=== PATIENT | female | born 1990 | race Caucasian/White ===

== ENCOUNTER 2018-05-01 11:22 | Emergency (ER) | payer MEDICAID ==
[2018-05-01 11:23] VITALS: BMI 43.4
--- NOTE | 2018-05-01 11:50 | ED PDOC ---
Arrival/HPI - General Chief Complaint: Chest Pain Time Seen by Provider: 05/01/18 11:38 Historian: Patient - History of Present Illness Narrative History of Present Illness (Text): 27yo female, A1, presents to ER with complaints of chest pain, present intermittently for the past 2 weeks. She reports the pain as "tightness" in her chest and states it occurs at night and resolves spontaneously. Patient states she recently took a home test on 04/25 and states it was positive. She denies any vaginal bleeding or discharge, shortness of breath, weakness, abdominal pain. She offers no other medical complaints. Time/Duration: > week (2) Symptom Onset: Gradual Quality: Tightness Past Medical History - Provider Review Nursing Documentation Reviewed: Yes - Travel History Have you recently traveled outside [place] w/in the past 3 mons?: No - Past History Past History: Non-Contributing - Infectious Disease Hx of Infectious Diseases: None - Tetanus Immunization Tetanus Immunization: Unknown - Reproductive Currently : Yes (states + urine test on 04/25) - Past Medical History Past Medical History: Non-Contributing - Cardiac Hx Hypertension: Yes (in ) - Pulmonary Hx Asthma: Yes - Psychiatric Hx Depression: No Hx Substance Use: No - Anesthesia Hx Anesthesia: No - Suicidal Assessment Feels Threatened In Home Enviroment: No Family/Social History Family/Social History: CAD/CO Smoking Status: Light Smoker < 10 Cigarettes Daily Hx Alcohol Use: Yes Hx Substance Use: No Hx Substance Use Treatment: No Allergies/Home Meds Allergies/Adverse Reactions: Allergies No Known Allergies Allergy (Verified 05/01/18 12:03) Home Medications: Home Meds Medication Instructions Recorded Confirmed No Known Home Med 05/01/18 05/01/18 Review of Systems - Physician Review All systems were reviewed & negative as marked: Yes - Review of Systems Respiratory: absent: SOB Cardiovascular: Chest Pain Gastrointestinal: absent: Abdominal Pain Genitourinary Female: absent: Vaginal Bleeding, Vaginal Discharge Physical Exam Vital Signs Reviewed: Yes Vital Signs Temp Pulse Resp BP Pulse Ox 05/01/18 16:53 98.0 F 79 18 99 05/01/18 11:55 97.5 F L 72 17 119/74 100 Temperature: Afebrile Blood Pressure: Normal Pulse: Regular Respiratory Rate: Normal Appearance: Positive for: Well-Appearing, Non-Toxic, Comfortable Pain Distress: None Mental Status: Positive for: Alert and Oriented X 3 - Systems Exam Head: Present: Atraumatic, Normocephalic Pupils: Present: PERRL Extroacular Muscles: Present: EOMI Respiratory/Chest: Present: Clear to Auscultation, Good Air Exchange, Respiratory Distress, Accessory Muscle Use Cardiovascular: Present: Regular Rate and Rhythm, Normal S1, S2. No: Murmurs Abdomen: No: Tenderness, Distention, Peritoneal Signs Neurological: Present: GCS=15, CN II-XII Intact, Speech Normal Skin: Present: Warm, Dry, Normal Color. No: Rashes Psychiatric: Present: Alert, Oriented x 3, Normal Insight, Normal Concentration Medical Decision Making ED Course and Treatment: Impression: Chest pain Plan: -- Upreg -- EKG Progress: EKG: NSR 64bpm No ST/T wave changes Normal axis 05/01/18 13:37 Urine HCG is positive. Patient now complaining of abdominal pain. US Pelvis ordered. 05/01/18 16:13 US results discussed with patient. On re-evaluation, patient reports improvement in pain and is stable for discharge home. Instructed to follow up with PMD, OBGYN and to return to ER if symptoms worsen or new symptoms arise. - Lab Interpretations Lab Results: Lab Results 05/01/18 13:10: Urine HCG, Qual Positive - RAD Interpretation Narrative RAD Interpretations (Text): 05/01/18 15:49 US Transvaginal FINDINGS: UTERUS: Measures 5.2 x 6.1 x 9.0 cm. Normal in size and appearance. No fibroid or other mass lesion seen. ENDOMETRIUM: Measures 18.1 mm in diameter. Gestational sac identified 3.7 mm. This is below the threshold for calculation of reliable gestational age. There is no visible yolk sac or pole CERVIX: No cervical abnormality identified. Closed cervix measures 3.3 cm. RIGHT OVARY: Measures 2.3 x 2.5 x 4.0 cm. No solid mass. Normal flow. Multiple subcentimeter follicles. Dominant cyst 1.5 x 1.6 x 1.4 cm LEFT OVARY: Measures 1.5 x 1.7 x 3.5 cm. No solid mass. Normal flow. FREE FLUID: No significant free fluid noted. OTHER FINDINGS: None. IMPRESSION: Saclike structure in the endometrial canal likely early gestational sac without visible yolk sac or pole. Additional benign and/or incidental findings described above. Radiology Orders: 05/01/18 13:38 OB TRANSVAGINAL [US] Stat Principal Statistical Scientist: Radiologist - Medication Orders Current Medication Orders: Discontinued Medications Acetaminophen (Tylenol 325mg Tab) 975 mg PO STAT STA Stop: 05/01/18 12:13 Last Admin: 05/01/18 12:29 Dose: 975 mg MAR Pain/Vitals Document 05/01/18 12:29 [email or web address] (Rec: 05/01/18 12:29 [email or web address] [id number]) Pain Reassessment Is This A Pain ReAssessment? No Sleep Is patient sleeping during reassessment? No Presence of Pain Presence of Pain Yes Pain Scale Used Pain Scale Used Numeric Location Pain Location Body Site Chest Description Constant Intensity 5 Scale Used Numeric Pain Behavior Facial Grimacing Aggravating Factors Changing Position Alleviating Factors Medication - Scribe Statement The provider has reviewed the documentation as recorded by the Scribe (Amy Mondragon) Provider Attestation: All medical record entries made by the Scribe were at my direction and personally dictated by me. I have reviewed the chart and agree that the record accurately reflects my personal performance of the history, physical exam, medical decision making, and the department course for this patient. I have also personally directed, reviewed, and agree with the discharge instructions and disposition. Disposition/Present on Arrival - Present on Arrival Any Indicators Present on Arrival: No History of DVT/PE: No History of Uncontrolled Diabetes: No Urinary Catheter: No History Surgical Site Infection Following: None - Disposition Have Diagnosis and Disposition been Completed?: Yes Diagnosis: Chest pain, Abdominal pain during in first trimester Disposition: HOME/ ROUTINE Disposition Time: 16:14 Condition: GOOD Discharge Instructions (ExitCare): Medications and , Chest Pain (ED) Additional Instructions: LIZETTE ECKERT, thank you for letting us take care of you today. Your provider was Maggie Mcelroy MD and you were treated for /CHEST PAINS. The emergency medical care you received today was directed at your acute symptoms. If you were prescribed any medication, please fill it and take as directed. It may take several days for your symptoms to resolve. Return to the Emergency Department if your symptoms worsen, do not improve, or if you have any other problems. Please contact your doctor or call one of the physicians/clinics you have been referred to that are listed on the Patient Visit Information form that is included in your discharge packet. Bring any paperwork you were given at discharge with you along with any medications you are taking to your follow up visit. Our treatment cannot replace ongoing medical care by a primary care provider outside of the emergency department. Please also follow up with your ob /meat curer. Thank you for allowing the [facility] team to be part of your care today. If you had an X-Ray or CT scan: A Radiologist will review the ED reading if any change in treatment is needed we will contact you. If you had a blood, urine, or wound culture: It will take several days for the results, if any change in treatment is needed we will contact you. If you had an STI test: It will take 48 hours for the results. Please call after 1 week if you have not heard back. Referrals: Lindsey Fernandes MD [Primary Care Provider] - Follow up with primary Forms: [employer] (Congolese)
[2018-05-01 12:04] VITALS: BP 119/74
--- NOTE | 2018-05-01 15:51 | US ---
HISTORY: with abdominal pain LMP 04/02/2018 COMPARISON: None available. TECHNIQUE: Transvaginal only. Real -time technique with 2D, duplex and color Doppler FINDINGS: UTERUS: Measures 5.2 x 6.1 x 9.0 cm. Normal in size and appearance. No fibroid or other mass lesion seen. ENDOMETRIUM: Measures 18.1 mm in diameter. Gestational sac identified 3.7 mm. This is below the threshold for calculation of reliable gestational age. There is no visible yolk sac or pole CERVIX: No cervical abnormality identified. Closed cervix measures 3.3 cm. RIGHT OVARY: Measures 2.3 x 2.5 x 4.0 cm. No solid mass. Normal flow. Multiple subcentimeter follicles. Dominant cyst 1.5 x 1.6 x 1.4 cm LEFT OVARY: Measures 1.5 x 1.7 x 3.5 cm. No solid mass. Normal flow. FREE FLUID: No significant free fluid noted. OTHER FINDINGS: None. IMPRESSION: Saclike structure in the endometrial canal likely early gestational sac without visible yolk sac or pole. Additional benign and/or incidental findings described above.
[2018-05-01 16:53] VITALS: PULSE 79; RESP 18; TEMP 98; O2SAT 99
--- NOTE | 2018-05-01 21:20 | CARD ---
APPROVED REPORT EKG Measurement Heart [id number] IA 150P-12 [id number] <Conclusion> Normal sinus rhythm Normal ECG
== END 2018-05-01 16:53 | disposition home or self-care (01) ==
LOC: ED 11:22
DX: O26.891 Other specified pregnancy related conditions, first trimester (principal); R07.9 Chest pain, unspecified; R10.9 Unspecified abdominal pain; Z3A.00 Weeks of gestation of pregnancy not specified

== ENCOUNTER 2018-08-02 08:19 | Emergency (ER) | payer MEDICAID ==
[2018-08-02 08:19] VITALS: BMI 43.4
[2018-08-02 08:25] VITALS: RESP 18
--- NOTE | 2018-08-02 08:36 | ED PDOC ---
Arrival/HPI - General Chief Complaint: GI Problem Time Seen by Provider: 08/02/18 08:31 Historian: Patient - History of Present Illness Narrative History of Present Illness (Text): 08/02/18 08:33 28 year old female smoker, with no significant past medical history, who presents to the emergency department complaining of diarrhea x 1.5 months. Patient notes associated abdominal pain and bloating. Patient notes she had an in may of 2018, and has experienced diarrhea 5-9 times a day since the following month. Patient denies any fevers, chills, chest pain, shortness of breath, nausea, vomiting, back pain, neck pain, urinary symptoms, headache, dizziness, or any other complaint. Time/Duration: > month Symptom Onset: Gradual Symptom Course: Unchanged Activities at Onset: Light Context: Home Past Medical History - Provider Review Nursing Documentation Reviewed: Yes - Past History Past History: Non-Contributing - Infectious Disease Hx of Infectious Diseases: None - Tetanus Immunization Tetanus Immunization: Unknown - Reproductive Menopause: No - Past Medical History Past Medical History: Non-Contributing - Cardiac Hx Hypertension: Yes (in ) - Pulmonary Hx Asthma: Yes - Psychiatric Hx Depression: No Hx Substance Use: No - Surgical History Other/Comment: 06/12/18 - Anesthesia Hx Anesthesia: No - Suicidal Assessment Feels Threatened In Home Enviroment: No Family/Social History - Physician Review Nursing Documentation Reviewed: Yes Family/Social History: Unknown Family HX Smoking Status: Never Smoked Hx Alcohol Use: Yes Hx Substance Use: No Hx Substance Use Treatment: No Allergies/Home Meds Allergies/Adverse Reactions: Allergies No Known Allergies Allergy (Verified 05/01/18 12:03) Review of Systems - Physician Review All systems were reviewed & negative as marked: Yes - Review of Systems Constitutional: Normal Eyes: Normal ENT: Normal Respiratory: Normal. absent: SOB, Cough Cardiovascular: Normal. absent: Chest Pain Gastrointestinal: Abdominal Pain, Diarrhea. absent: Nausea, Vomiting Genitourinary Female: Normal. absent: Dysuria, Frequency Musculoskeletal: Normal. absent: Back Pain, Neck Pain Skin: Normal. absent: Rash Neurological: Normal. absent: Headache, Dizziness Endocrine: Normal Hemo/Lymphatic: Normal Psychiatric: Normal Physical Exam Vital Signs Reviewed: Yes Vital Signs Temp Pulse Resp BP Pulse Ox 08/02/18 10:15 73 18 128/64 100 08/02/18 08:25 98.4 F 79 18 131/61 100 Temperature: Afebrile Blood Pressure: Normal Pulse: Regular Respiratory Rate: Normal Appearance: Positive for: Well-Appearing, Non-Toxic, Comfortable Pain Distress: None Mental Status: Positive for: Alert and Oriented X 3 - Systems Exam Head: Present: Atraumatic, Normocephalic Pupils: Present: PERRL Extroacular Muscles: Present: EOMI Conjunctiva: Present: Normal Mouth: Present: Moist Mucous Membranes Neck: Present: Normal Range of Motion Respiratory/Chest: Present: Clear to Auscultation, Good Air Exchange. No: Respiratory Distress, Accessory Muscle Use Cardiovascular: Present: Regular Rate and Rhythm, Normal S1, S2. No: Murmurs Abdomen: No: Tenderness, Distention, Peritoneal Signs Back: Present: Normal Inspection Upper Extremity: Present: Normal Inspection. No: Cyanosis, Edema Lower Extremity: Present: Normal Inspection. No: Edema Neurological: Present: GCS=15, CN II-XII Intact, Speech Normal Skin: Present: Warm, Dry, Normal Color. No: Rashes Psychiatric: Present: Alert, Oriented x 3, Normal Insight, Normal Concentration Medical Decision Making ED Course and Treatment: 08/02/18 08:37 Impression: 28 year old female presents to the emergency department complaining of diarrhea x 1.5 months. Plan: -- VBG -- CT abd/pelvis -- Labs -- Blood Culture -- Stool Culture -- Labs -- UA -- US Gallbladder -- Reassess and disposition Progress Notes: 08/02/18 10:43 US Gallbladder reviewed, shows: IMPRESSION: Negative study - Lab Interpretations Lab Results: 08/02/18 08:50 08/02/18 08:50 Lab Results 08/02/18 08:50: Beta HCG, Quant < 2.39 08/02/18 08:50: Sodium 143, Chloride 110 H, Potassium 4.0, Carbon Dioxide 24, Anion Gap 13, BUN 12, Creatinine 0.5 L, Est GFR ( Amer) > 60, Est GFR ( Non-Af Amer) > 60, Random Glucose 89, Calcium 9.2, Phosphorus 3.8, Magnesium 2.0 , Total Bilirubin 0.5, AST 45 H, ALT 65 H, Alkaline Phosphatase 71, Total Protein 7.5, Albumin 4.1, Globulin 3.4, Albumin/Globulin Ratio 1.2, Amylase 49, Lipase 59 08/02/18 08:50: pO2 40, VBG pH 7.30 L, VBG pCO2 54.0, VBG HCO3 26.6, VBG Total CO2 28.3 H, VBG O2 Sat (Calc) 76.6 H, VBG Base Excess -0.7 L, VBG Potassium 3.7 , Sodium 142.0, Chloride 110.0 H, Glucose 83, Lactate 0.6 L, FiO2 21.0, Venous Blood Potassium 3.7 08/02/18 08:50: Urine Color Yellow, Urine Appearance Clear, Urine pH 6.0, Ur Specific Hurley >= 1.030, Urine Protein Trace H, Urine Glucose (UA) Negative, Urine Ketones Negative, Urine Blood Trace-intact H, Urine Nitrate Negative, Urine Bilirubin Negative, Urine Urobilinogen 0.2, Ur Leukocyte Esterase Negative , Urine RBC 0 - 2, Urine WBC 0 - 2, Ur Epithelial Cells 10 - 12, Urine Bacteria Neg 08/02/18 08:50: PT 12.9 H, INR 1.12 08/02/18 08:50: WBC 12.0 H, RBC 4.34, Hgb 12.7, Hct 38.7, MCV 89.2, MCH 29.3, MCHC 32.8, RDW 14.3, Plt Count 375, MPV 9.8, Gran % 72.6 H, Lymph % (Auto) 17.8 L, [place] % (Auto) 5.6, Eos % (Auto) 3.8, Baso % (Auto) 0.2, Gran # 8.67 H, Lymph # (Auto) 2.1, [place] # (Auto) 0.7 H, Eos # (Auto) 0.5, Baso # (Auto) 0.02 - RAD Interpretation Radiology Orders: 08/02/18 08:34 ABD PELVIS PO & IV CONTRAST [CT] Stat GALL BLADDER [US] Stat - Medication Orders Current Medication Orders: Discontinued Medications Diphenoxylate HCl/Atropine (Lomotil 0.025-2.5 Mg Tablet) 2 tab PO STAT STA Stop: 08/02/18 12:48 - Scribe Statement The provider has reviewed the documentation as recorded by the Scribe Brittany Samuel All medical record entries made by the Scribe were at my direction and personally dictated by me. I have reviewed the chart and agree that the record accurately reflects my personal performance of the history, physical exam, medical decision making, and the department course for this patient. I have also personally directed, reviewed, and agree with the discharge instructions and disposition. Disposition/Present on Arrival - Present on Arrival Any Indicators Present on Arrival: No History of DVT/PE: No History of Uncontrolled Diabetes: No Urinary Catheter: No History of Decub. Ulcer: No History Surgical Site Infection Following: None - Disposition Have Diagnosis and Disposition been Completed?: Yes Diagnosis: Diarrhea Disposition: HOME/ ROUTINE Disposition Time: 12:53 Patient Plan: Discharge Patient Problems: Current Active Problems Problem Status Onset Diarrhea Acute Condition: GOOD Discharge Instructions (ExitCare): Diarrhea in Adolescents and Adults, Diarrhea and Traveler's Diarrhea, Adult (DC) Additional Instructions: Cheli- All of your test results are normal, but we did see a small right sided ovarian cyst. Use the immodium to slow the diarrhea down and make sure you follow up with the coffee break attendant, Dr LEE. Return to us if any problems. Best- Dr. Jon Loza Referrals: Antoine Lee MD [Medical Doctor] - Follow up with primary Forms: [employer] (Tanzanian)
[2018-08-02 09:14] LABS: URINE BILIRUBIN NEGATIVE (NEGATIVE); URINE BLOOD TRACE-INTACT (NEGATIVE); URINE GLUCOSE (UA) NEGATIVE (NEGATIVE); URINE LEUKOCYTE ESTERASE NEGATIVE Leu/uL (NEGATIVE); URINE PROTEIN TRACE mg/dL (<30 mg/dL); URINE UROBILINOGEN 0.2 E.U./dL (<1 E.U./dL)
[2018-08-02 09:17] LABS: VENOUS BLOOD GAS BASE EXCESS -0.7 mmol/L (0.0-2.0); VENOUS BLOOD GAS PO2 40 mm/Hg (30-55)
[2018-08-02 09:21] LABS: INR 1.12; PROTHROMBIN TIME 12.9 SECONDS (9.4-12.5)
[2018-08-02 09:22] LABS: URINE APPEARANCE CLEAR (CLEAR); URINE COLOR YELLOW (YELLOW)
[2018-08-02 09:24] LABS: ALB/GLOB RATIO 1.2 (1.1-1.8); ALBUMIN 4.1 g/dL (3.0-4.8); ALT/SGPT 65 U/L (7-56); AMYLASE 49 U/L (35-125); AST/SGOT 45 U/L (14-36); BLOOD UREA NITROGEN 12 mg/dL (7-21); CALCIUM 9.2 mg/dL (8.4-10.5); GFR NON-AFRICAN AMERICAN > 60; LIPASE 59 U/L (23-300)
[2018-08-02 09:26] LABS: BASO # 0.02 K/mm3 (0.0-2.0); BASO % 0.2 % (0.0-3.0); EOS # 0.5 (0.0-0.7); EOS % 3.8 % (1.5-5.0); GRAN # 8.67 (1.4-6.5); GRAN % 72.6 % (50.0-68.0); HEMOGLOBIN 12.7 g/dL (12.0-16.0); LYMPH # 2.1 (1.2-3.4); LYMPH % 17.8 % (22.0-35.0); MEAN CELL VOLUME 89.2 fl (80.0-105.0); MEAN CORPUSCULAR HEMOGLOBIN 29.3 pg (25.0-35.0); MEAN CORPUSCULAR HGB CONC 32.8 g/dl (31.0-37.0); MEAN PLATELET VOLUME 9.8 fl (7.0-11.0); MONO # 0.7 (0.1-0.6); MONO % 5.6 % (1.0-6.0); RBC 4.34 10^6/uL (3.5-6.1); RED CELL DISTRIBUTION WIDTH 14.3 % (11.5-14.5)
[2018-08-02 09:44] LABS: URINE BACTERIA NEG (NEG); URINE RBC 0 - 2 /hpf (0-2); URINE WBC 0 - 2 /hpf (0-6)
[2018-08-02] MEDS ORDERED: Iohexol 240 (50 ml) ONE (09:44)
--- NOTE | 2018-08-02 10:25 | US ---
Date of service: 08/02/2018 HISTORY: Abdominal Pain and Bloating COMPARISON: None. TECHNIQUE: Sonographic evaluation of the right upper quadrant of the abdomen. FINDINGS: LIVER: Measures 14.7 x 11.6 cm in length. Normal echogenicity of the liver parenchyma. No mass. No intrahepatic bile duct dilatation. GALLBLADDER: Unremarkable. No gallstones. COMMON BILE DUCT: Measures 3 mm. No stones. No dilatation. PANCREAS: Unremarkable as visualized. No mass. No ductal dilatation. RIGHT KIDNEY: Measures 11.69 x 4.52 x 5.58 cm in length. Normal echogenicity. No calculus, mass, or hydronephrosis. AORTA: No aneurysmal dilatation. IVC: Unremarkable. OTHER FINDINGS: None . IMPRESSION: Negative study
[2018-08-02] MEDS ORDERED: Iohexol 350 MG/100 ML VIAL ONE (11:54)
--- NOTE | 2018-08-02 12:39 | CT ---
Date of service: 08/02/2018 PROCEDURE: CT Abdomen and Pelvis with contrast HISTORY: Abdominal Pain and Diarrhea COMPARISON: None. TECHNIQUE: Contrast dose: 100 cc of Omni 350 Radiation dose: Total exam DLP = 1161 mGy-cm. This CT exam was performed using one or more of the following dose reduction techniques: Automated exposure control, adjustment of the mA and/or kV according to patient size, and/or use of iterative reconstruction technique. FINDINGS: LOWER THORAX: Unremarkable. LIVER: Unremarkable. No gross lesion or ductal dilatation. GALLBLADDER AND BILE DUCTS: Unremarkable. PANCREAS: Unremarkable. No gross lesion or ductal dilatation. SPLEEN: Unremarkable. ADRENALS: Unremarkable. No mass. KIDNEYS AND URETERS: Unremarkable. No hydronephrosis. No solid mass. VASCULATURE: Unremarkable. No aortic aneurysm. BOWEL: Unremarkable. No obstruction. No gross mural thickening. APPENDIX: Normal appendix. PERITONEUM: There is a small amount of free fluid in the cul-de-sac. LYMPH NODES: Unremarkable. No enlarged lymph nodes. BLADDER: Unremarkable. REPRODUCTIVE: Small right ovarian cyst. BONES: No acute fracture. OTHER FINDINGS: None. IMPRESSION: Small amount of free fluid in the cul-de-sac most likely from recent cyst rupture. The study is otherwise unremarkable
[2018-08-02] MEDS ORDERED: Atropine-Diphenoxylate 0.025-2.5 mg Tab PO STA (12:47)
[2018-08-02 13:07] VITALS: BP 125/71; PULSE 74; TEMP 98.5; O2SAT 99
== END 2018-08-02 13:01 | disposition home or self-care (01) ==
LOC: ED 08:19
DX: R19.7 Diarrhea, unspecified (principal)
CPT/HCPCS: 74177; 76705; 80053; 81001; 82150; 82803; 83690; 83735; 84100; 84702; 85025; 85610; 87040; 87045; 87324; 99284; Q9966; Q9967

== ENCOUNTER 2019-02-25 13:52 | Emergency (ER) | payer MEDICAID ==
[2019-02-25 13:53] VITALS: BMI 43.4
[2019-02-25 14:35] VITALS: RESP 18
--- NOTE | 2019-02-25 15:42 | ED PDOC ---
Arrival/HPI - General Chief Complaint: ENT Problem Historian: Patient - History of Present Illness Narrative History of Present Illness (Text): 02/25/19 15:34 28 y/o female, no significant pmh, nkda, c/o rt. ear pain and sorethroat and lower back pain x 2 days. Pt. stated that she has been having a URI symptoms x 2 days, associated with rt. ear pain, admits throat pain, lower back pain, no flank pain, no urinary symptoms, no rash, no dizziness, no change in vision, no nausea/vomiting/diarrhea, no numbness or tingling, no radiating pain, no hematuria, no other medical or psychological complaints. Past Medical History - Provider Review Nursing Documentation Reviewed: Yes - Past History Past History: Non-Contributing - Infectious Disease Hx of Infectious Diseases: None - Tetanus Immunization Tetanus Immunization: Unknown - Reproductive Menopause: No - Past Medical History Past Medical History: Non-Contributing - Cardiac Hx Hypertension: Yes (in ) - Pulmonary Hx Asthma: Yes - Psychiatric Hx Depression: No Hx Substance Use: No - Surgical History Other/Comment: 06/12/18 - Anesthesia Hx Anesthesia: No - Suicidal Assessment Feels Threatened In Home Enviroment: No Family/Social History - Physician Review Nursing Documentation Reviewed: Yes Family/Social History: Unknown Family HX Smoking Status: Never Smoked Hx Alcohol Use: Yes Hx Substance Use: No Hx Substance Use Treatment: No Allergies/Home Meds Allergies/Adverse Reactions: Allergies No Known Allergies Allergy (Verified 05/01/18 12:03) Review of Systems - Review of Systems Constitutional: absent: Fatigue, Fevers Eyes: absent: Vision Changes ENT: Sore Throat, Other (rt. ear pain). absent: Rhinorrhea, Epistaxis, Sinus Congestion Respiratory: absent: SOB, Cough Cardiovascular: absent: Chest Pain Gastrointestinal: absent: Abdominal Pain, Nausea, Vomiting Musculoskeletal: Back Pain. absent: Arthralgias, Neck Pain, Myalgias Skin: absent: Rash, Pruritis, Skin Lesions Neurological: absent: Headache, Dizziness Psychiatric: absent: Anxiety, Depression, Suicidal Ideation Physical Exam Vital Signs Reviewed: Yes Vital Signs Temp Pulse Resp BP Pulse Ox 02/25/19 14:30 98.9 F 80 18 142/81 99 Temperature: Afebrile Blood Pressure: Normal Pulse: Regular Respiratory Rate: Normal Appearance: Positive for: Well-Appearing, Non-Toxic, Comfortable Pain Distress: Mild Mental Status: Positive for: Alert and Oriented X 3 - Systems Exam Head: Present: Atraumatic, Normocephalic, Other (no facial bony tenderness) Pupils: Present: PERRL Extroacular Muscles: Present: EOMI Conjunctiva: Present: Normal Ears: Present: NORMAL TM, Normal Canal, Other (Ears: Rt. TM erythematous and intact, lt. TM mauricio color and intact, bilateral auditory canals non- erythematous, no mastoid tenderness, ). No: Erythema Mouth: Present: Moist Mucous Membranes Pharnyx: Present: Soft Palate/Uvular Edema. No: ERYTHEMA, EXUDATE, TONSILS ENLARGED, Peritonsilar Swelling, Uvular Deviation, Muffled/Hoarse Voice, Strider Nose (External): Present: Atraumatic. No: Abrasion, Contusion, Laceration Nose (Internal): Present: Normal Inspection, No Active Bleeding. No: Rhinorrhea, Septal Hematoma, Epistaxis Neck: Present: Normal Range of Motion, Trachea Midline. No: Meningeal Signs, MIDLINE TENDERNESS, Paraspinal Tenderness, Lymphadenopathy Respiratory/Chest: Present: Clear to Auscultation, Good Air Exchange. No: Respiratory Distress, Accessory Muscle Use, Wheezes, Decreased Breath Sounds, Rales, Retracting, Rhonchi, Tachypneic, Tender to Palpation Cardiovascular: Present: Regular Rate and Rhythm, Normal S1, S2. No: Murmurs, Peripheal Pulses Present Abdomen: Present: Normal Bowel Sounds. No: Tenderness, Distention, Peritoneal Signs, Rebound, Guarding, McBurney's Point Tender, Rovsing's Sign Present Back: Present: Normal Inspection, Other (Thoracic to LS spine: no midline tenderness or step off, no paraspinal muscle tenderness, no cva tenderness, FROM without limitation, sensation intact, motor 5/5, SLR test negative, no saddling gait. ). No: CVA Tenderness, Midline Tenderness, Paraspinal Tenderness, Pain with Leg Raise, Decubitus Ulcer Upper Extremity: Present: Normal Inspection, Normal ROM, NORMAL PULSES, Neurovascularly Intact, Capillary Refill < 2s. No: Cyanosis, Edema, Deformity Lower Extremity: Present: Normal Inspection, NORMAL PULSES, Normal ROM, Neurovascularly Intact, Capillary Refill < 2 s. No: Edema, Tenderness, Swelling, Deformity Neurological: Present: GCS=15, CN II-XII Intact, Speech Normal, Motor Func Grossly Intact, Normal Cerebellar Funct, Gait Normal, Memory Normal Skin: Present: Warm, Dry, Normal Color. No: Rashes Lymphatic: No: Cervical Adenopathy Psychiatric: Present: Alert, Oriented x 3, Normal Insight, Normal Concentration Medical Decision Making ED Course and Treatment: 02/25/19 15:44 - -UA -MOtrin -Observe and reassess 02/25/19 17:33 -Urine hcg is negative -UA show +UTI -Pt. feels well -Discharge home with augmentin, motrin, bed rest, follow up with your own pmd and orthopedic within 2 days, return to the ER for any new or worsening signs or symptoms. - PA / BENCH INSPECTOR / Resident Statement /DO has reviewed & agrees with the documentation as recorded. Disposition/Present on Arrival - Present on Arrival Any Indicators Present on Arrival: No History of DVT/PE: No History of Uncontrolled Diabetes: No Urinary Catheter: No History of Decub. Ulcer: No History Surgical Site Infection Following: None - Disposition Have Diagnosis and Disposition been Completed?: Yes Diagnosis: Otitis media, Back pain Disposition: HOME/ ROUTINE Disposition Time: 17:35 Patient Plan: Discharge Patient Problems: Current Active Problems Problem Status Onset Otitis media Acute Back pain Acute Condition: GOOD Additional Instructions: -Discharge home with augmentin, motrin, bed rest, follow up with your own pmd and orthopedic within 2 days, return to the ER for any new or worsening signs or symptoms. Prescriptions: Amoxicillin/Clavulanate [Augmentin 875 MG-125 MG] 1 tab PO BID #20 tab Ibuprofen [Motrin] 600 mg PO QID PRN #30 tab PRN Reason: Other Referrals: Yusef Shahid MD [Primary Care Provider] - Follow up with primary Forms: [employer] (Angolan), WORK NOTE
[2019-02-25] MEDS ORDERED: Amoxicillin-Clav 875-125 mg Tab PO STA (15:45)
[2019-02-25 16:16] LABS: URINE BILIRUBIN NEGATIVE (NEGATIVE); URINE BLOOD TRACE-INTACT (NEGATIVE); URINE GLUCOSE (UA) NEGATIVE (NEGATIVE); URINE LEUKOCYTE ESTERASE TRACE Leu/uL (NEGATIVE); URINE PROTEIN NEGATIVE mg/dL (<30 mg/dL); URINE UROBILINOGEN 0.2 E.U./dL (<1 E.U./dL)
[2019-02-25 16:28] LABS: URINE APPEARANCE CLEAR (CLEAR); URINE COLOR YELLOW (YELLOW)
[2019-02-25 17:48] VITALS: BP 135/57; PULSE 76; TEMP 98.1; O2SAT 96
== END 2019-02-25 17:48 | disposition home or self-care (01) ==
LOC: ED 13:52
DX: H66.90 Otitis media, unspecified, unspecified ear (principal); M54.9 Dorsalgia, unspecified; I10 Essential (primary) hypertension